=== PATIENT | female | born 2000 | race Caucasian/White ===

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

== ENCOUNTER 2024-01-26 07:15 | Inpatient (IN) ==
[2024-01-26] MEDS ORDERED: LIDOCAINE 1% LOCAL 20 ML VIAL INFIL PRN (07:59)
[2024-01-26] MEDS: LACTATED RINGER'S 1,000 ML IV PRN (07:59)
[2024-01-26] MEDS: OXYTOCIN 30 UNITS/500ML NSS IV ONE (08:09)
[2024-01-26] MEDS: OXYTOCIN 30 UNITS/NSS 30 UNITS/500 ML BAG IV PRN (08:11)
[2024-01-26] MEDS ORDERED: OXYTOCIN 30 UNITS/NSS 30 UNITS/500 ML BAG IV PRN (08:26)
[2024-01-26] MEDS ORDERED: bisacodyL 10 MG SUPP PR PRN (08:26)
[2024-01-26] MEDS ORDERED: ACETAMINOPHEN 325 MG TAB PO PRN (08:26)
[2024-01-26] MEDS ORDERED: BENZOCAINE 20% SPRY 85 APPLN/85 GM CAN EXT PRN (08:26)
[2024-01-26] MEDS ORDERED: IBUPROFEN 600 MG TAB PO PRN (08:26)
[2024-01-26] MEDS ORDERED: HYDROCORTISONE ACETATE 25 MG SUPP PR PRN (08:26)
--- NOTE | 2024-01-26 08:30 | Labor Progress Brief Note ---
Date of Service January 26, 2024 Assessment & Plan Admission and Anticipated Discharge Date Admission Date: January 26, 2024 Results & Data Vital Signs (Past 12 Hours) Vital Signs Temp Pulse Resp BP 01/26/24 08:17 81 116/76 01/26/24 07:28 36.8 C 71 20 127/81
--- NOTE | 2024-01-26 08:34 | Post Operative Brief Note ---
Immediate Post Op Note Date of Surgery January 26, 2024 Pre & Post Diagnosis SVE; Fully dilated I identified the patient and participated in the time-out.: Yes Procedure pt fully dilated and pushing, placed in dorsal lithotomy position, prepped an draped in usual fashion, pt pushed for few minutes, delivered a live viable female infant in OA position, placed the infant on the mothers abdomen, bulb suctioned no=se and mouth cord clamped and cut by the nurse in attendance. Placenta delivered spontaneously and complete. No lacerations noted. IV Pitocin started Surgeon Isaura Levy MD Jewel Lathe Operator none Estimated Blood Loss 250 Findings Consistent with Post-Op Diagnosis live viable female
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
[2024-01-26] MEDS: DIPHTHER/TETAN/PERTUS Vaccine (Tdap, Adol/Adult) 0.5mL IM ONE (08:50)
[2024-01-26 08:56] LABS: Amphetamines+Metham, Urine Neg (Neg); Barbiturates, Urine Neg (Neg); Benzodiazepine, Urine Neg (Neg); Cocaine, Urine Neg (Neg); Fentanyl, Urine Neg (Neg); MDMA (Ecstacy), Urine Neg (Neg); Marijuana, Urine Neg (Neg); Methadone, Urine Neg (Neg); Opiate, Urine Neg (Neg); Phencyclidine, Urine Neg (Neg)
[2024-01-26 10:10] LABS: Hematocrit (blood only) 33.6 % (37.0-47.0); Hemoglobin 11.4 g/dl (12.0-16.0); Mean Corpuscular Hemoglobin 29.8 pg (25.0-34.0); Mean Corpuscular Hgb Conc 33.9 g/dL (32.0-36.0); Mean Corpuscular Volume 87.7 fL (80.0-100.0); Mean Platelet Volume 9.1 fL (9.4-12.4); Platelet Count 180 K/uL (130-400); RDW Coefficient of Variation 14.3 % (11.5-14.5); RDW Standard Deviation 44.8 fL (36.4-46.3); Red Blood Count 3.83 M/uL (4.20-5.40); White Blood Count 10.44 K/ul (4.8-10.8)
--- OUTSIDE RECORDS SUMMARY | 2024-01-26 11:41 | External Medical Summary | Summary of Care ---
Author Name Unknown Organization [facility] Address [address] [place] [address] Phone [phone] Care Team Providers Care Knockdown Man Name Role Phone Tarik Gomez MD Primary Care Provider Encounter Details Date Type Department Care Team (Late st Contact Info) Description 01/09/2024 Telephone Gynecology/Obstetrics [facility] [address] [place] [id number] Mk Stratton MD [address] [place] [id number] Allergies Active Allergy Reactions Criticality Noted Date Comments Copper 07/04/2019 Chemical moran on skin Ibuprofen 07/04/2019 Rash Latex 07/04/2019 Hives Red Dye #40 (Allura Red) 08/24/2023 documented as of this encounter (statuses as of 01/17/2024) Medications Medication Sig Dispensed Refills Start Date End Date Status Plus 27-1 MG Oral TabletIndications:Enc ounter for supervision of other normal , second trimester Take 1 Tablet by mouth in the morning. 30 Tablet 7 08/25/2023 Active Sertraline HCl 50 MG Oral Tablet (Zoloft)Indications:A nxiety disorder affecting , antepartum Take 1/2 tablet once daily for 2 weeks, then take a full tablet once daily. 30 Tablet 5 08/25/2023 Active Albuterol Sulfate HFA 108 (90 Base) MCG/ACT Inhalation Aerosol Solution Inhale 2 Puffs by mouth every 6 hours as needed for Shortness of Breath. Active Doxylamine-Pyridoxine 10-10 MG Oral Tablet Delayed Release (Diclegis) Take 2 Tablets by mouth at bedtime as needed for Nausea. 30 Tablet 1 09/01/2023 Active Ondansetron 4 MG Oral Tablet Disintegrating (Zofran)Indications:N ausea and vomiting in Dissolve on tongue every 8 hours as needed for nausea. 30 Tablet 10/25/2023 Active Iron-Vitamin C 65-125 MG Oral Tablet (Vitron C)Indications:Antepar miguel anemia complicating Take 1 Tablet by mouth in the morning. 30 Tablet 6 11/23/2023 Active Additional Information Patient not taking.Reported on 12/01/2023 documented as of this encounter (statuses as of 01/17/2024) Active Problems Problem Noted Date Diagnosed Date Iron deficiency anemia 12/07/2023 Antepartum anemia complicating 024 Overview: Hgb 11/21 10.9. BM referral placed. Impaired fasting glucose 09/01/2023 Premenstrual dysphoric disorder 09/01/2023 Severe recurrent major depressive disorder with psychosis 09/01/2023 Bipolar disease during 08/30/2023 Overview: History of bipolar disorder and schizoaffective disorder Managed on Zoloft 50 mg restarted at [facility] and psychiatry referral placed by OB. Reports tolerating Zoloft well and has been on it in the past as well. Follows with Donna Landon at [facility] in [place] - has virtual visits weekly Reports a stable mood in . Denies any suicidal or homicidal ideation. Reports she has a good support system at home. Last Assessment & Plan: CONSIDERATIONS: and delivery can worsen the symptoms of bipolar disorder. and women have a sevenfold higher risk of hospital admission than those who have not recently been . Rates of relapse range from 32% to 67%. There also is an increased risk of psychosis as high as 46%. Stopping treatment may increase the risk of recurrent mood episodes, particularly if medications are discontinued abruptly (eg, in less than two weeks). Women who discontinue medication within 6 months of conception are more than twice as likely to suffer a recurrence of the disease. RECOMMENDATIONS: For bipolar patients who are , we suggest maintenance pharmacotherapy rather than no treatment. However, for patients with a mild lifetime course of illness, it is reasonable to try to avoid pharmacotherapy during . The decision to treat bipolar disorder during should be determined on an individualized basis and treatment should be provided by general psychiatrists in collaboration with obstetricians and primary care clinicians. Family history of spina bifida 08/29/2023 Overview: FOB Adam sister with history of spina bifida. Reports his father has blood clotting disorder, mother has lupus. And has ?DNA issues in family per pt. Agreeable to GC referral. Last Assessment & Plan: Recommend genetic counseling referral. Recommend MSAFP testing; OB to coordinate if patient interested in same. 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 Reports had vaginal bleeding and passed POC at home. Reports did not require medical/surgical intervention. Patient agreeable to GC referral. NIPT in process Last Assessment & Plan: Recommend genetic counseling referral. High-risk 08/25/2023 Overview: Pregravid BMI: Undetermined. 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 Previously on Keppra (last used 2 years ago) and lamotrigine (last used 04/2022). Patient states she is re-establishing with her neurologist as of 08/25/23. Reports upcoming appt in 10/2023 in [place], [place] with Dr. Jason Patterson. 11/22/23: pt reports follow up with neuro, was advised that she would start anti-convulsants post-. To see MFM again if she takes anything in . Last Assessment & Plan: Renita states that she's had some seizure like activity (focal) recently per her . She has an upcoming neurology appt (not seen in Epic) as well as an appt with her PCP. Advised that if medication is started for active seizure disorder, to please reach out to MFM as she will need a follow-up growth u/s. Short interval between pregn ancies complicating , antepartum 08/25/2023 Overview: Last delivered 03/25/2023 MFM referral placed 08/24 Last Assessment & Plan: Low risk NIPT appreciated. Schizoaffective disorder, bipolar type Cluster B personality disorder 05/10/2022 Exercise-induced asthma 05/08/2022 Polycystic ovary syndrome 05/08/2022 Food insecurity 02/02/2021 Overview: Per [facility] Protocol Anxiety 06/11/2020 Bipolar affective 06/11/2020 Seizure-like activity 12/03/2019 SVT (supraventricular tachycardia) 07/04/2019 Overview: In 01/2019 Schizoaffective disorder BMI 32.0-32.9,adult Irregular menses PTSD (post-traumatic stress disorder) Estimated Date of Delivery Comme nts Yes 02/17/2024 Based on Ultraso und documented as of this encounter (statuses as of 01/17/2024) Resolved Problems Problem Noted Date Diagnosed Date Resolved Date History of suicide attempt 09/01/2023 0 09/01/2023 Total perforation of tympanic membrane 09/01/2023 09/01/2023 Prediabetes 06/05/2020 documented as of this encounter (statuses as of 01/17/2024) Immunizations Name Administration Dates Next Due DTaP Dipth/Tet/Acell Pertussis (Infanrix), Peds 03/28/2007 HPV Vaccine, 4-Valent 12/13/2013,08/13/2013,05/27 HPV Vaccine, 9-Valent 06/04/2019 Hepatitis A Vaccine 09/03/2011,04/27/2007 Hepatitis B, 0-19 yrs 2001,2001 IPV - Polio Virus Vaccine (Inact) 04/27/2007,03/2002 MMR - Measles/Mumps/Rubella Vaccine 03/28/2007 Meningococcal B, 2/3-Dose Se dominik (TRUMENBA) 07/14/2017 Meningococcal MCV4O Conjugat e Vaccine (Menveo) 07/20/2019 Meningococcal MCV4P Conjugat e Vaccine (Menactra) 12/05/2018,12/08/2017,07/14/2017,06/14 PPD 07/18/2019,06/03/2016,02/24/2016 Seasonal Influenza Virus Vac cine, Unspecified Formulation 01/29/2019,01/23/2019,03/21/2018,01/13,02/26/2016,02/12/2014,02/22/2013 ,02/15/2012 Seasonal Influenza, Quadriva lent, No Preserve, IM 01/23/2019 TDAP, Age 7 and older, IM (Adacel) 11/22/2023, Varicella Vaccine (Chicken Pox) 03/28/2007 documented as of this encounter Social History Tobacco Use Types Packs/Day Years Used Date Smoking Tobacco: Never Passive Smoke Exposure: Never Smokeless Tobacco: Never Comments:1 smoker in househo ld Alcohol Use Standard Drinks/Week Comments Never 0 (1 standard drink = 0.6 oz pur e alcohol) denies in AUDIT-C Answer Date Recorded Frequency of Alcohol Consumption Monthly or less 07/20/2019 Average Number of Drinks Not on file 020 Frequency of Binge Drinking Not on file 06/24 PHQ-2 Answer Date Recorded PHQ-2 Score 2 07/04/2019 Hunger Vital Sign Answer Date Recorded Within the past 12 months, y ou worried that your food would run out before you got the money to buy more. Often true 08/24/19 24 Within the past 12 months, t he food you bought just didn't last and you didn't have money to get more. Often true 08/24/2023 [place] Depression Scale Answer Date Recorded [place] Depression Scale Total 16 08/25/2023 The thought of harming myself has occurred to me . Never 08/25/2023 Childcare Answer Date Recorded Do you feel overwhelmed with taking care of a child, family member or friend? No 08/24/2023 Does your family need help f inding childcare? (Household - for ages 0-17 years) Not on file 08/24/2023 Clothing Answer Date Recorded Have you been unable to get clothing when it was really needed? Yes 08/24/2023 Is your family able to get c lothes or diapers when needed? (Household - for ages 0-17 years) Not on file 08/24/2023 Personal Safety Answer Date Recorded Do you feel unsafe or have concerns for your saf ety? No 08/24/2023 Do you have concerns for you r family's safety? (Household - for ages 0-17 years) Not on file 08/24/2023 Utilities Answer Date Recorded Do you have trouble paying y our heating, water, or electric bill? No 08/24/2023 Is your family able to pay t he heat, water, or electric bill? (Household - for ages 0-17 years) Not on file 08/24/2023 Does your family have access to good internet? (Household - for ages 0-17 years) Not on file 08/24/2023 Employment Status Answer Date Recorded Are you unemployed or without regular income? No 08/24/2023 Does the household have a re gular source of income? (Household - for ages 0-17 years) Not on file 08/24/2023 Social Connections Answer Date Recorded How often do you feel lonely or isolated from th ose around you? Often 08/24/2023 Financial Resource Strain Answer Date R ecorded Do you have any trouble payi ng for your medications, or do you think you might in the future? No 08/24/2023 Does your family have troubl e paying for medicine? (Household - for ages 0-17 years) Not on file 08/24/2023 Transportation Needs Answer Date Record ed READ ONLY Do you have troubl e getting a ride to medical visits or work? Often True 08/24/2023 Does your family have a hard time getting a ride to doctors visits? (Household - for ages 0-17 years) Not on file 08/24/2023 Has lack of transportation k ept you from medical appointments, meetings, work, or from getting things needed for daily living? Check all that apply. (Adult - for ages 18 years and over) Not on file 08/24/2023 Do you (or your family) have trouble finding or paying for a ride (transportation)? (Household - for ages 0-17 years) Not on file 08/24/2023 Housing Stability Answer Date Recorded Do you currently live in a s helter or have no steady place to sleep at night? Yes 08/24/2023 READ ONLY Do you think you a re at risk of becoming homeless? Yes 08/24/2023 Does your family worry about paying for your home or becoming homeless? (Household - for ages 0-17 years) Not on file 0 08/24/2023 Are you homeless or worried that you might be in the future? (Adult - for ages 18 years and over) Not on file Are you (or your family) tony eless or worried that you might be in the future? (Household - for ages 0-17 years) Not on file Food Insecurity Answer Date Recorded Do you need food for this week? Yes 08/24/2023 Are you able to get enough f ood for your family? (Household - for ages 0-17 years) Not on file 08/24/2023 Does your family need food t his week? (Household - for ages 0-17 years) Not on file 08/24/2023 Do you always have enough fo od for your family? (Household - for ages 0-17 years) Not on file 08/24/2023 Estimated Date of Delivery Comme nts Yes 02/17/2024 Based on Ultraso und Sex and Gender Information Value Date Recorded Sex Assigned at Female 01/20/2023 2:27 AM EDT Gender Identity Non-Binary/Gender Non-Conforming 01/20/2023 2:27 AM EDT Sexual Orientation Straight 01/20/2023 2: 27 AM EDT Job Start Date Occupation Industry Not on file Not on file Not on file documented as of this encounter Miscellaneous Notes * Telephone Encounter - Althea Magana LPN - 01/09/2024 10:05 AM EDT left message for patient to call office. Patient missed her last appointment and is [facility]. documented in this encounter Plan of Treatment Upcoming Encounters Date Type Department Care Team (Late st Contact Info) Description 01/31/2024 2:30 PM EDT Pharmacy Pharmacy, [address] [address] Clinic, [address] [address] 09/03/2024 11:00 AM EDT Office Visit Family Practice [facility] [address] [facility] [place] [address] Tarik Gomez MD [address] [facility] [place] [id number] Health Maintenance Due Date Last Done Comments Depression Monitoring 07/03/2020 07/04/2019 Pneumococcal Vaccine: Pediat rics (0 to 5 Years) and At-Risk Patients (6 to 64 Years) (2 of 2 - PPSV23 or PCV20) 08/06/2022 06/11/2022 *SPIROMETRY ONCE FOR ASTHMA-ADULT 09/03/2023 Influenza Vaccine (FLU shot) (#1) 2023 01/29/2019, 01/23/2019, 01/23/2019, Additional history exists Gonorrhea / Chlamydia Screen 08/24/202405/2023, 06/25/2020, 07/04/2019 Pap Smear 08/24/2026 08/25/2023 DTap/Tdap Vaccines (9 - Td o r Tdap) 11/21/2033 11/22/2023, 12/09/2019, 06/14/2013, Additional history exists Hepatitis B Vaccine Completed 05/03/2002, 2001, 2001, Additional history exists HPV (Gardasil) Vaccine Completed , 12/13/2013, 12/13/2013, Additional history exists MENINGOCOCCAL (MENACTRA/MENVEO) Completed 07/20/2019, 07/20/2019, 12/05/2018, Additional history exists COVID-19 Vaccine Discontinued 06/11/2022 documented as of this encounter Medical Devices Not on filedocumented as of this encounter Care Teams Knockdown Man Relationship Specialty Start Date End Date Tarik Gomez MD [address] [facility] [place] [id number] PCP - General Family Medicine 09/01/23 documented as of this encounter
--- OUTSIDE RECORDS SUMMARY | 2024-01-26 11:41 | External Medical Summary | Summary of Care ---
Author Name Unknown Organization [facility] Address [address] [place] [address] Phone [phone] Care Team Providers Care Wireless Watcher Name Role Phone Tarik Gomez MD Primary Care Provider Reason for Visit * Reason Onset Date Comments Advice 01/16/2024 Encounter Details Date Type Department Care Team (Late st Contact Info) Description 01/16/2024 Telephone Family Practice [facility] [address] [address] Tarik Gomez MD [address] [address] Advice Allergies Active Allergy Reactions Criticality Noted Date Comments Copper 07/04/2019 Chemical moran on skin Ibuprofen 07/04/2019 Rash Latex 07/04/2019 Hives Red Dye #40 (Allura Red) 08/24/2023 documented as of this encounter (statuses as of 01/19/2024) Medications Medication Sig Dispensed Refills Start Date [...] as of this encounter (statuses as of 01/19/2024) Active Problems Problem Noted Date Diagnosed Date Iron deficiency anemia 12/07/2023 Antepartum anemia complicating 024 Overview: Hgb 11/21 10.9. BM referral placed. Impaired fasting glucose 09/01/2023 Premenstrual dysphoric disorder 09/01/2023 Severe recurrent major depressive disorder with psychosis 09/01/2023 Bipolar disease during 08/30/2023 Overview: History of bipolar disorder and schizoaffective disorder Managed on Zoloft 50 mg restarted at [facility] and psychiatry referral placed by OB. Reports tolerating Zoloft well and has been on it in the past as well. Follows with Donna Landon at [facility] in [place] virtual visits weekly Reports a stable mood [...] 14w 25.22 ASA: Patient has NSAID allergy MFM consult: Placed 08/24 Growth US: N/A NST: N/A Delivery: [facility] Anesthesia consult: Not indicated Seizure disorder [...] 08/25/23. Reports upcoming appt in 10/2023 in [place], [place] with Dr. Jason Patterson. 11/22/23: pt reports follow up with neuro, was advised that she would start anti-convulsants post-. To see MFM again if she takes anything in . Last Assessment & Plan: Renita states that she's had some seizure like activity (focal) recently per her . She has an upcoming neurology appt (not seen in [place]) as well as an appt with her [...] as of this encounter (statuses as of 01/19/2024) Resolved Problems Problem Noted Date Diagnosed Date Resolved Date History of suicide attempt 09/01/2023 0 09/01/2023 Total perforation of tympanic membrane 09/01/2023 09/01/2023 Prediabetes 06/05/2020 documented as of this encounter (statuses as of 01/19/2024) Immunizations Name Administration Dates Next Due DTaP Dipth/Tet/Acell Pertussis (Infanrix), Peds 03/28/2007,10/17/2002,01/04/2002,09/27,2001 HIB Hep B - HIB Hepatitis B (Comvax) 2001, 2001 HIB PRP-T, 4 Dose, PF, IM (H iberix, ActHib) 01/04/2002 HPV Vaccine, 4-Valent 12/13/2013,08/13/2013,05/27 HPV Vaccine, 9-Valent 06/04/2019 Hepatitis A Vaccine 09/03/2011,04/27/2007 Hepatitis B, 0-19 yrs 05/03/2002,2001,05/27 IPV - Polio Virus Vaccine (Inact) 2007,10/17/2002,01/04/2002,09/27,2001 MMR - Measles/Mumps/Rubella Vaccine 03/28/2007,0 05/03/2002 Meningococcal B, 2/3-Dose Se lehman (TRUMENBA) 07/14/2017 Meningococcal MCV4O Conjugat e Vaccine (Menveo) 07/20/2019 Meningococcal MCV4P Conjugat e Vaccine (Menactra) 12/05/2018,12/08/2017,07/14/2017,06/14 PPD 07/18/2019,06/03/2016,02/24/2016 Pneumococcal Conjugate Vacci ne, 7 Valent 10/17/2002,01/04/2002,2001 Seasonal Influenza Virus Vac cine, Unspecified Formulation 01/29/2019,01/23/2019,03/21/2018,01/13,02/26/2016,02/12/2014,02/22/2013 ,02/15/2012 Seasonal Influenza, Quadriva lent, No Preserve, IM 01/23/2019 TDAP, Age 7 and older, IM (Adacel) 11/22/2023, Varicella Vaccine (Chicken Pox) 03/28/2007,05/03 documented as of this encounter Social History [...] money to get more. Often true 08/24/2023 [place] Depression Scale Answer Date Recorded [place] Depression Scale Total 16 08/25/2023 The thought [...] encounter Miscellaneous Notes * Telephone Encounter - Tarik Gomez MD - 01/19/2024 7:36 AM EDT Will reply formally after discussing/seeing her for appt 9.28.24 - of note the patient has fairly severe bipolar 1 disorder for which she has had previous inpatient care and hospitalization, including after the of her daughter (who is <1 year old). She is high risk. * Telephone Encounter - Joellen Hilton DO - 01/16/2024 4:55 PM EDT Am not familiar with patient Dr. Gomez can comment when he returns * Telephone Encounter - Tania Garcia LPN - 01/16/2024 2:31 PM EDT Obey calling from [employer]. They have received Multiple reports on patient. She is currently 33 weeks They were not aware that patient had a PCP, they reach out to OBGYN office to ask regarding patientdecision making skills and mental capacity but they were not able to comment on this. Patient is Chronically Homeless and currently , they have gone through so much to try to help her but patient keep declining services. Obey wants to know if PCP can comment on patient's mental capacity and decision making. Reviewed last office note nothing noted in there. Last appt was 09/01/2023 (in office), 01/20/2023 (telemedicine). Please advise and call Obey back at: [phone] * Telephone Encounter - Patricia Mary OSA - 01/16/2024 2:26 PM EDT Called to speak to scheduling regarding patients appts. Asked to speak to a nurse, trans to ded nurse: Tania documented in this encounter Plan of Treatment Upcoming Encounters Date Type Department Care Team (Late st Contact Info) Description 01/31/2024 2:30 PM EDT [facility] [address] [place] [address] [facility], [place] [address] [place] [address] 09/03/2024 11:00 AM EDT Office Visit Family Practice [facility] [address] [address] Tarik Gomez MD [address] [address] Health Maintenance Due Date Last Done Comments [...] filedocumented as of this encounter Care Teams Wireless Watcher Relationship Specialty Start Date End Date Tarik Gomez MD [address] [facility] [address] [address] PCP - General Family Medicine 09/01/23 documented as of this encounter
--- OUTSIDE RECORDS SUMMARY | 2024-01-26 11:41 | External Medical Summary | Summary of Care ---
Author Name Unknown Organization [facility] Address [address] [place] [address] Phone [phone] Care Team Providers Care Hand Ironer Name Role Phone Tarik Gomez MD Primary Care Provider Reason for Visit * Reason Onset Date Comments Advice 01/16/2024 Encounter Details Date Type Department Care Team (Late st Contact Info) Description 01/16/[address] [facility] [address] [address] Tarik Gomez MD [address] [address] Advice Allergies Active Allergy Reactions Criticality Noted Date Comments Copper 07/04/2019 Chemical moran on skin Ibuprofen 07/04/2019 Rash Latex 07/04/2019 Hives Red Dye #40 (Allura Red) 08/24/2023 documented as of this encounter (statuses as of 01/24/2024) Medications Medication Sig Dispensed Refills Start Date [...] as of this encounter (statuses as of 01/24/2024) Active Problems Problem Noted Date Diagnosed Date Iron deficiency anemia 12/07/2023 Antepartum anemia complicating 024 Overview: Hgb 11/21 10.9. BM referral placed. Impaired fasting glucose 09/01/2023 Premenstrual dysphoric disorder 09/01/2023 Severe recurrent major depressive disorder with psychosis 09/01/2023 Bipolar disease during 08/30/2023 Overview: History of bipolar disorder and schizoaffective disorder Managed on Zoloft 50 mg restarted at [facility] and psychiatry referral placed by OB. Reports tolerating Zoloft well and has been on it in the past as well. Follows with Donna Landon at [facility] in [facility] virtual visits weekly Reports a stable mood [...] 08/24 Growth US: N/A NST: N/A Delivery: [facility] Anesthesia consult: Not indicated Seizure disorder [...] 08/25/23. Reports upcoming appt in 10/2023 in [place], [place] with Dr. Jason Patterson. 11/22/23: pt reports follow up with neuro, was advised that she would start anti-convulsants post-. To see MFM again if she takes anything in . Last Assessment & Plan: Renita states that she's had some seizure like activity (focal) recently per her . She has an upcoming neurology appt (not seen in [facility]) as well as an appt with her [...] 32.0-32.9,adult Irregular menses PTSD (post-traumatic stress disorder) Comments Yes documented as of this encounter (statuses as of 01/24/2024) Resolved Problems Problem Noted Date Diagnosed Date Resolved Date History of suicide attempt 09/01/2023 0 09/01/2023 Total perforation of tympanic membrane 09/01/2023 09/01/2023 Prediabetes 06/05/2020 documented as of this encounter (statuses as of 01/24/2024) Immunizations Name Administration Dates Next Due DTaP [...] Vaccine 03/28/2007,0 05/03/2002 Meningococcal B, 2/3-Dose Se dominik (TRUMENBA) 07/14/2017 [...] money to get more. Often true 08/24/2023 [place] Depression Scale Answer Date Recorded [place] Depression Scale Total 16 08/25/2023 The thought [...] ages 0-17 years) Not on file 08/24/2023 Comments Yes Sex and Gender Information Value Date Recorded Sex Assigned at Female 01/20/2023 2:27 AM EDT Gender Identity Non-Binary/Gender Non-Conforming 01/20/2023 2:27 AM EDT Sexual Orientation Straight 01/20/2023 2: 27 AM EDT Job Start Date Occupation Industry Not on file Not on file Not on file documented as of this encounter Miscellaneous Notes * Telephone Encounter - Reyna Flroes LPN - 01/24/2024 9:19 AM EDT Called and spoke with Obey from [facility]. Message relayed. No further questions at this time. * Telephone Encounter - Enedina Tuttle LPN - 01/23/2024 12:25 PM EDT Attempted to call patient, there was no answer, left voicemail. When patient returns call, ok for GRIS to relay message, please refer to below documentation. If needed, can transfer to dedicated nurse line. Called Obey at: [phone] and left message to called the office regarding pt. Matt had this to say: Will reply formally after discussing/seeing her for appt 01.21.24 - of note the patient has fairly severe bipolar 1 disorder for which she has had previous inpatient care and hospitalization, including after the of her daughter (who is <1 year old). She is high risk. * Telephone Encounter - Tarik Gomez MD - 01/23/2024 10:18 AM EDT The patient did not show up for her appt on 01/21/2024 - please call Obey at number noted below and convey message - thank you. * Telephone Encounter - Tarik Gomez MD - 01/19/2024 7:36 AM EDT Will reply formally after discussing/seeing her for appt 01.21.24 - of note the patient has fairly [...] Please advise and call Obey back at: [phone] * Telephone Encounter - Patricia Mary OSA - 01/16/2024 2:26 PM EDT Called to speak to scheduling regarding patients appts. Asked to speak to a nurse, trans to ded nurse: Tania documented in this encounter Plan of Treatment Upcoming Encounters Date Type Department Care Team (Late st Contact Info) Description 01/31/2024 2:30 PM EDT Pharmacy Pharmacy, [address] [address] Clinic, [address] [address] 02/02/2024 4:30 PM EDT Office Visit Gynecology/Obstetrics [facility] [address] [address] Deepa Gonzalez PA-C [address] [place] [address] 09/03/2024 11:00 AM EDT Office Visit Family Practice [facility] [address] [address] Tarik Gomez MD [address] [place] [address] Health Maintenance Due Date Last Done Comments [...] filedocumented as of this encounter Care Teams Hand Ironer Relationship Specialty Start Date End Date Tarik Gomez MD [address] [facility] [address] [place] [address] PCP - General Family Medicine 09/01/23 documented as of this encounter
--- OUTSIDE RECORDS SUMMARY | 2024-01-26 11:41 | External Medical Summary | Summary of Care ---
Author Name Unknown Organization [facility] Address [address] [place] [address] Phone [phone] Care Team Providers Care Telephonic Nurse Name Role Phone Tarik Gomez MD Primary Care Provider Reason for Visit * Reason Onset Date Comments Advice 01/16/2024 Encounter Details Date Type Department Care Team (Late st Contact Info) Description 01/16/2024 Telephone Family Practice [facility] [address] [address] Tarik Gomez MD [address] [address] Advice Allergies Active Allergy Reactions Criticality Noted Date Comments Copper 07/04/2019 Chemical moran on skin Ibuprofen 07/04/2019 Rash Latex 07/04/2019 Hives Red Dye #40 (Allura Red) 08/24/2023 documented as of this encounter (statuses as of 01/16/2024) Medications Medication Sig Dispensed Refills Start Date [...] as of this encounter (statuses as of 01/16/2024) Active Problems Problem Noted Date Diagnosed Date Iron deficiency anemia 12/07/2023 Antepartum anemia complicating 024 Overview: Hgb 11/21 10.9. BM referral placed. Impaired fasting glucose 09/01/2023 Premenstrual dysphoric disorder 09/01/2023 Severe recurrent major depressive disorder with psychosis 09/01/2023 Bipolar disease during 08/30/2023 Overview: History of bipolar disorder and schizoaffective disorder Managed on Zoloft 50 mg restarted at [facility] and psychiatry referral placed by OB. Reports tolerating Zoloft well and has been on it in the past as well. Follows with Donna Landon at [facility] in [facility] virtual visits weekly Reports a stable mood [...] 08/24 Growth US: N/A NST: N/A Delivery: [facility] Anesthesia consult: Not indicated Seizure disorder [...] 08/25/23. Reports upcoming appt in 10/2023 in [place], [place] with Dr. Jason Patterson. 11/22/23: pt reports follow up with neuro, was advised that she would start anti-convulsants post-. To see MFM again if she takes anything in . Last Assessment & Plan: Renita states that she's had some seizure like activity (focal) recently per her . She has an upcoming neurology appt (not seen in [facility]) as well as an appt with her [...] as of this encounter (statuses as of 01/16/2024) Resolved Problems Problem Noted Date Diagnosed Date Resolved Date History of suicide attempt 09/01/2023 0 09/01/2023 Total perforation of tympanic membrane 09/01/2023 09/01/2023 Prediabetes 06/05/2020 documented as of this encounter (statuses as of 01/16/2024) Immunizations Name Administration Dates Next Due DTaP [...] money to get more. Often true 08/24/2023 [place] Depression Scale Answer Date Recorded [place] Depression Scale Total 16 08/25/2023 The thought [...] encounter Miscellaneous Notes * Telephone Encounter - Joellen Hilton DO [...] Please advise and call Obey back at: [phone] * Telephone Encounter - Patricia Mary OSA - 01/16/2024 2:26 PM EDT Called to speak to scheduling regarding patients appts. Asked to speak to a nurse, trans to ded nurse: Tania documented in this encounter Plan of Treatment Upcoming Encounters Date Type Department Care Team (Late st Contact Info) Description 01/31/2024 2:30 PM EDT Pharmacy Pharmacy, [address] [address] Clinic, [address] [address] 09/03/2024 11:00 AM EDT Office Visit Family Practice [facility] [address] [address] Tarik Gomez MD [address] [place] [address] Health Maintenance Due Date Last Done Comments [...] Additional history exists HPV (Gardasil) Vaccine Completed 0, 12/13/2013, 12/13/2013, Additional history exists MENINGOCOCCAL (MENACTRA/MENVEO) Completed 07/20/2019, 07/20/2019, 12/05/2018, Additional history exists COVID-19 Vaccine Discontinued 06/11/2022 documented as of this encounter Medical Devices Not on filedocumented as of this encounter Care Teams Telephonic Nurse Relationship Specialty Start Date End Date Tarik Gomez MD [address] [place] [address] PCP - General Family Medicine 09/01/23 documented as of this encounter
--- OUTSIDE RECORDS SUMMARY | 2024-01-26 11:41 | External Medical Summary | Summary of Care ---
Author Name Unknown Organization [facility] Address [address] [place] [address] Phone [phone] Care Team Providers Care Tree Driller Name Role Phone Tarik Gomez MD Primary Care Provider Reason for Visit * Reason Onset Date Comments Advice 01/16/2024 Encounter Details Date Type Department Care Team (Late st Contact Info) Description 01/16/2024 Telephone Family Practice [facility] [address] [address] Tarik Gomez MD [address] [address] Advice Allergies Active Allergy Reactions Criticality Noted Date Comments Copper 07/04/2019 Chemical moran on skin Ibuprofen 07/04/2019 Rash Latex 07/04/2019 Hives Red Dye #40 (Allura Red) 08/24/2023 documented as of this encounter (statuses as of 01/23/2024) Medications Medication Sig Dispensed Refills Start Date [...] as of this encounter (statuses as of 01/23/2024) Active Problems Problem Noted Date Diagnosed Date Iron deficiency anemia 12/07/2023 Antepartum anemia complicating 024 Overview: Hgb 11/21 10.9. BM referral placed. Impaired fasting glucose 09/01/2023 Premenstrual dysphoric disorder 09/01/2023 Severe recurrent major depressive disorder with psychosis 09/01/2023 Bipolar disease during 08/30/2023 Overview: History of bipolar disorder and schizoaffective disorder Managed on Zoloft 50 mg restarted at [facility] and psychiatry referral placed by OB. Reports tolerating Zoloft well and has been on it in the past as well. Follows with Donna Landon at [facility] in [facility] virtual visits weekly Reports a stable [...] 08/24 Growth US: N/A NST: N/A Delivery: [facility] Anesthesia consult: Not indicated Seizure disorder in [...] 08/25/23. Reports upcoming appt in 10/2023 in [place], [place] with Dr. Jason Patterson. 11/22/23: pt reports follow up with neuro, was advised that she would start anti-convulsants post-. To see MFM again if she takes anything in . Last Assessment & Plan: Renita states that she's had some seizure like activity (focal) recently per her . She has an upcoming neurology appt (not seen in [facility]) as well as an appt with her [...] as of this encounter (statuses as of 01/23/2024) Resolved Problems Problem Noted Date Diagnosed Date Resolved Date History of suicide attempt 09/01/2023 0 09/01/2023 Total perforation of tympanic membrane 09/01/2023 09/01/2023 Prediabetes 06/05/2020 documented as of this encounter (statuses as of 01/23/2024) Immunizations Name Administration Dates Next Due DTaP [...] money to get more. Often true 08/24/2023 [place] Depression Scale Answer Date Recorded [place] Depression Scale Total 16 08/25/2023 The thought [...] encounter Miscellaneous Notes * Telephone Encounter - Enedina Tuttle LPN - 01/23/2024 12:25 PM EDT Attempted to call patient, there was no answer, left voicemail. When patient returns call, ok for GRIS to relay message, please refer to below documentation. If needed, can transfer to dedicated nurse line. Called Obey at: [phone] and left message to called the office regarding pt. Renégini had this to say: Will reply formally [...] reply formally after discussing/seeing her for appt 01.20.24 - of note the patient has fairly [...] Please advise and call Obey back at: [phone] * Telephone Encounter - Patricia Mary OSA - 01/16/2024 2:26 PM EDT Called to speak to scheduling regarding patients appts. Asked to speak to a nurse, trans to ded nurse: Tania documented in this encounter Plan of Treatment Upcoming Encounters Date Type Department Care Team (Late st Contact Info) Description 01/31/2024 2:30 PM EDT Pharmacy Pharmacy, [address] [address] Clinic, [address] [address] 09/03/2024 11:00 AM EDT Office Visit [facility] [address] [address] Tarik Gomez MD [address] [address] Health Maintenance Due Date Last Done Comments [...] filedocumented as of this encounter Care Teams Tree Driller Relationship Specialty Start Date End Date Tarik Gomez MD [address] [address] PCP - General Family Medicine 09/01/23 documented as of this encounter
--- OUTSIDE RECORDS SUMMARY | 2024-01-26 11:41 | External Medical Summary | Summary of Care ---
Author Name Unknown Organization [facility] Address [address] [place] [address] Phone [phone] Care Team Providers Care Operations Label Clerk Name Role Phone Tarik Gomez MD Primary Care Provider Reason for Visit * Reason Onset Date Comments Advice 01/16/2024 Encounter Details Date Type Department Care Team (Late st Contact Info) Description 01/16/2024 Telephone Family Practice [facility] [address] [address] Tarik Gomez MD [address] [address] Advice Allergies Active Allergy Reactions Criticality Noted [...] Zoloft 50 mg restarted at [facility] and psychiatry referral placed by OB. Reports tolerating Zoloft well and has been on it in the past as well. Follows with Donna Landon at [facility] in [facility] virtual visits weekly Reports a [...] 08/24 Growth US: N/A NST: N/A Delivery: [facility] Anesthesia consult: Not indicated Seizure disorder [...] 08/25/23. Reports upcoming appt in 10/2023 in [place], [place] with Dr. Jason Patterson. 11/22/23: pt reports follow up with neuro, was advised that she would start anti-convulsants post-. To see MFM again if she takes anything in . Last Assessment & Plan: Renita states that she's had some seizure like activity (focal) recently per her . She has an upcoming neurology appt (not seen in [facility]) as well as an appt with [...] money to get more. Often true 08/24/2023 [place] Depression Scale Answer Date Recorded [place] Depression Scale Total 16 08/25/2023 The thought [...] reply formally after discussing/seeing her for appt .28.24 - of note the patient has fairly [...] Please advise and call Obey back at: [phone] * Telephone Encounter - Patricia Mary OSA - 01/16/2024 2:26 PM EDT Called to speak to scheduling regarding patients appts. Asked to speak to a nurse, trans to ded nurse: Tania documented in this encounter Plan of Treatment Upcoming Encounters Date Type Department Care Team (Late st Contact Info) Description 01/31/2024 2:30 PM EDT Pharmacy Pharmacy, [place] [address] [place] [address] Clinic, [facility] [address] [place] [address] 09/03/2024 11:00 AM EDT Office Visit [facility] [address] [address] Tarik Gomez MD [address] [address] Health Maintenance Due Date Last Done Comments [...] filedocumented as of this encounter Care Teams Operations Label Clerk Relationship Specialty Start Date End Date Tarik Gomez MD [address] [facility] [address] [place] [address] PCP - General Family Medicine 09/01/23 documented as of this encounter
--- OUTSIDE RECORDS SUMMARY | 2024-01-26 11:41 | External Medical Summary | Summary of Care ---
Author Name Unknown Organization [facility] Address [address] [place] [address] Phone [phone] Care Team Providers Care Lens Molding Equipment Operator Name Role Phone Tarik Gomez MD Primary Care Provider Encounter Details Date Type Department Care Team (Late st Contact Info) Description 01/18/2024 Telephone [facility] [address] [place] [address] Anjali Chow CRNP [address] [place] [address] Allergies Active Allergy Reactions Criticality Noted Date [...] Managed on Zoloft 50 mg restarted at [facility] and psychiatry referral placed by OB. Reports tolerating Zoloft well and has been on it in the past as well. Follows with Donna Landon at [facility] in [place] [facility] virtual visits weekly Reports a stable mood [...] N/A NST: N/A Delivery: [facility] Anesthesia consult: Not indicated Seizure disorder in [...] 08/25/23. Reports upcoming appt in 10/2023 in [place], [place] with Dr. Jason Patterson. 11/22/23: pt reports follow up with neuro, was advised that she would start anti-convulsants post-. To see MFM again if she takes anything in . Last Assessment & Plan: Renita states that she's had some seizure like activity (focal) recently per her . She has an upcoming neurology appt (not seen [facility]) as well as an appt [...] money to get more. Often true 08/24/2023 [place] Depression Scale Answer Date Recorded [place] Depression Scale Total 16 08/25/2023 The thought [...] encounter Miscellaneous Notes * Telephone Encounter - Tania Luque RN - 01/19/2024 8:47 AM EDT Spoke with Raghu. He did not need further info. Just needs to know if she presents to L&D anywhere. They have already notified L&D at [facility]. * Telephone Encounter - Tania Luque RN - 01/18/2024 2:55 PM EDT I received an email from Benedicto Hernadez from L&D at [place]. She received a request from [facility] to notify them kevin is Renita Alford Juan C Ruth presented to L&D at [facility] for delivery due to a concern for lack of housing and the mental health of the pt and her . Akua was unable to locate pt at the time in the EMR. I was able to find pt and call was placed to [facility] to update them that we have not had contact with her since 01/04 and which time she said she was dealing with a family emergency out of state. LM for Raghu at [facility] to call back. documented in this encounter Plan of Treatment Upcoming Encounters Date Type Department Care Team (Late st Contact Info) Description 01/31/2024 2:30 PM EDT Pharmacy Pharmacy, [place] [address] [place] [address] [place] [address] [place] [address] 09/03/2024 11:00 AM EDT Office Visit Family Practice [facility] [address] [address] Tarik Gomez MD [address] [place] [phone] Health Maintenance Due Date Last Done Comments [...] filedocumented as of this encounter Care Teams Lens Molding Equipment Operator Relationship Specialty Start Date End Date Tarik Gomez MD [address] [place] [id number] PCP - General Family Medicine 09/01/23 documented as of this encounter
--- OUTSIDE RECORDS SUMMARY | 2024-01-26 11:42 | External Medical Summary | Summary of Care ---
Author Name Unknown Organization [facility] Address [address] [place] [address] Phone [phone] Care Team Providers Care Thermodynamics Teacher Name Role Phone Tarik Gomez MD Primary Care Provider Reason for Visit * Reason Onset Date Comments Advice 01/16/2024 Encounter Details Date Type Department Care Team (Late st Contact Info) Description 01/16/2024 Telephone Family Practice [facility] [address] [id number] Tarik Gomez MD [address] [address] Advice Allergies Active Allergy Reactions Criticality Noted [...] Managed on Zoloft 50 mg restarted at [facility] and psychiatry referral placed by OB. Reports tolerating Zoloft well and has been on it in the past as well. Follows with Donna Landon at [facility] in [facility] virtual visits weekly Reports a stable [...] 08/24 Growth US: N/A NST: N/A Delivery: [facility] Anesthesia consult: Not indicated Seizure [...] 08/25/23. Reports upcoming appt in 10/2023 in [place], [place] with Dr. Jason Patterson. 11/22/23: pt [...] money to get more. Often true 08/24/2023 [place] Depression Scale Answer Date Recorded [place] Depression Scale Total 16 08/25/2023 The thought [...] Miscellaneous Notes * Telephone Encounter - Tania Garcia LPN [...] Please advise and call Obey back at: [phone] * Telephone Encounter - Patricia Mary OSA - 01/16/2024 2:26 PM EDT Called to speak to scheduling regarding patients appts. Asked to speak to a nurse, trans to ded nurse: Tania documented in this encounter Plan of Treatment Upcoming Encounters Date Type Department Care Team (Late st Contact Info) Description 01/31/2024 2:30 PM EDT Pharmacy Pharmacy, [address] [address] Clinic, [place] [address] [place] [address] 09/03/2024 11:00 AM EDT Office [facility] [place] [address] Tarik Gomez MD [address] [place] [address] Health Maintenance Due Date Last Done Comments [...] filedocumented as of this encounter Care Teams Thermodynamics Teacher Relationship Specialty Start Date End Date Tarik Gomez MD [address] [place] [address] PCP - General Family Medicine 09/01/23 documented as of this encounter
--- OUTSIDE RECORDS SUMMARY | 2024-01-26 11:42 | External Medical Summary | Summary of Care ---
Author Name Unknown Organization [facility] Address [address] [place] [address] Phone [phone] Care Team Providers Care Truck Chauffeur Name Role Phone Tarik Gomez MD Primary Care Provider Reason for Visit * Reason Onset Date Comments Advice 01/16/2024 Encounter Details Date Type Department Care Team (Late st Contact Info) Description 01/16/2024 Telephone Family Practice [facility] [address] [phone] Tarik Gomez MD [address] [place] [address] Advice Allergies Active Allergy Reactions Criticality Noted [...] Managed on Zoloft 50 mg restarted at [facility] and psychiatry referral placed by OB. Reports tolerating Zoloft well and has been on it in the past as well. Follows with Donna Landon at [facility] in [facility] virtual visits weekly Reports a stable [...] 08/24 Growth US: N/A NST: N/A Delivery: [facility] Anesthesia consult: Not indicated Seizure disorder in [...] 08/25/23. Reports upcoming appt in 10/2023 in [place], [place] with Dr. Jason Patterson. 11/22/23: pt reports follow up with neuro, was advised that she would start anti-convulsants post-. To see MFM again if she takes anything in . Last Assessment & Plan: Renita states that she's had some seizure like activity (focal) recently per her . She has an upcoming neurology appt (not seen in [facility]) as well as an appt with [...] money to get more. Often true 08/24/2023 [place] Depression Scale Answer Date Recorded [place] Depression Scale Total 16 08/25/2023 The thought [...] Please advise and call Obey back at: [phone] * Telephone Encounter - Patricia Mary OSA - 01/16/2024 2:26 PM EDT Called to speak to scheduling regarding patients appts. Asked to speak to a nurse, trans to ded nurse: Tania documented in this encounter Plan of Treatment Upcoming Encounters Date Type Department Care Team (Late st Contact Info) Description 01/31/2024 2:30 PM EDT Pharmacy Pharmacy, [address] [address] Clinic, [place] [address] [place] [address] 09/03/2024 11:00 AM EDT Office [facility] [place] [address] Tarik Gomez MD [address] [place] [address] Health Maintenance Due Date Last Done Comments [...] filedocumented as of this encounter Care Teams Truck Chauffeur Relationship Specialty Start Date End Date Tarik Gomez MD [address] [place] [address] PCP - General Family Medicine 09/01/23 documented as of this encounter
[2024-01-27 06:33] LABS: Hematocrit (blood only) 32.1 % (37.0-47.0); Hemoglobin 11.2 g/dl (12.0-16.0); Mean Corpuscular Hemoglobin 30.4 pg (25.0-34.0); Mean Corpuscular Hgb Conc 34.9 g/dL (32.0-36.0); Platelet Count 153 K/uL (130-400); RDW Coefficient of Variation 14.4 % (11.5-14.5); RDW Standard Deviation 44.6 fL (36.4-46.3); Red Blood Count 3.69 M/uL (4.20-5.40); White Blood Count 9.61 K/ul (4.8-10.8)
[2024-01-27] MEDS: PRENATAL VITAMIN 1 TAB PO SCH (08:32)
--- NOTE | 2024-01-27 08:35 | Obstetrical Progress Note ---
Date of Service January 27, 2024 Assessment & Plan (1) Normal course: PPD #1 pt dog well Pt is homeless - Social service will be contacted by nurse Continue day #1 care Subjective Ambulation: ambulating normally Voiding: no voiding problems Passing Gas:: Yes Diet Tolerance:: regular diet Lochia:: Small Feeding Type:: breast feeding Review of Systems All systems reviewed & are unremarkable except as noted in HPI & below Physical Exam Constitutional WD/WN, vitals as above well developed and well nourished Eyes PERRL, conjunctivae normal, anicteric sclerae Neck trachea midline, no thyromegaly Respiratory normal respiratory effort, lungs clear to auscultation Auscultation: no crackles, no rales and no wheezes Cardiovascular RRR, no murmur, no edema Gastrointestinal (Abdomen) normal bowel sounds, soft, nontender, no hepatosplenomegaly Uterus is below umbilicus Musculoskeletal no cyanosis or clubbing, extremities motor strength 5/5 Skin no rashes, warm and dry Neurologic patellar DTR's 2+ bilat, sensation intact Psychiatric A+Ox3, euthymic affect Genitourinary normal external appearance Results & Data Vital Signs (Past 12 Hours) Vital Signs Temp Pulse Resp BP BP Pulse Ox O2 Del Method 01/27/24 04:20 36.5 C 65 14 100/68 98 Room Air 01/27/24 00:08 36.4 C L 76 14 95/60 L 98 Room Air 01/26/24 22:28 80 16 107/64 98 Room Air
[2024-01-27 15:19] VITALS: O2SAT 99
[2024-01-27 15:43] VITALS: RESP 18; TEMP 98.2
[2024-01-27 17:18] VITALS: BP 117/72; PULSE 61
== END 2024-01-27 21:05 | disposition home or self-care (01) | DRG 807 ==
LOC: OPB 07:15 → 4S1 07:21 → 4E2 15:00
DX: O42.013 Preterm premature rupture of membranes, onset of labor within 24 hours of rupture, third trimester; Z37.0 Single live birth; Z3A.36 36 weeks gestation of pregnancy; Z88.6 Allergy status to analgesic agent